=== PATIENT | female | born 2000 | race Caucasian/White ===

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

== ENCOUNTER 2018-05-05 15:19 | Emergency (ER) | payer BC, OTHER ==
--- NOTE | 2018-05-05 17:29 | ERPHSYRPT ---
- History of Present Illness Time Seen by Provider: 05/05/18 17:22 Source: patient Exam Limitations: no limitations Patient Subjective Stated Complaint: lump on right breast Triage Nursing Assessment: Pt c/o of lump on right lateral breast, no breakage of the skin, headache, doesn't feel good, denies vomiting, nasuea, afebrile, tachycardic, pulses normal Physician History: pt has tender right breast for several days and has felt like having some fever has tried heat compress, no vomiting, no discharge , not breast feeding; no trauma; Timing/Duration: day(s) Severity: mild Associated Symptoms: fever, headaches Allergies/Adverse Reactions: No Known Drug Allergies Allergy (Verified 05/05/18 15:39) Hx Tetanus, Diphtheria Vaccination/Date Given: Yes Hx Influenza Vaccination/Date Given: No Hx Pneumococcal Vaccination/Date Given: No - Review of Systems Constitutional: Fever, No Chills Eyes: No Symptoms Ears, Nose, & Throat: No Symptoms Respiratory: No Cough, No Dyspnea Cardiac: No Chest Pain, No Edema, No Syncope Abdominal/Gastrointestinal: No Abdominal Pain, No Nausea, No Vomiting, No Diarrhea Genitourinary Symptoms: No Dysuria Musculoskeletal: No Back Pain, No Neck Pain Skin: No Rash Neurological: No Dizziness, No Focal Weakness, No Sensory Changes Psychological: No Symptoms Endocrine: No Symptoms All Other Systems: Reviewed and Negative - Past Medical History Pertinent Past Medical History: Yes Neurological History: No Pertinent History ENT History: No Pertinent History Cardiac History: No Pertinent History Respiratory History: No Pertinent History Endocrine Medical History: No Pertinent History Musculoskeletal History: No Pertinent History GI Medical History: No Pertinent History Psycho-Social History: Anxiety, Depression Female Reproductive Disorders: No Pertinent History Other Medical History: kidney infection - Past Surgical History Past Surgical History: No Neuro Surgical History: No Pertinent History Cardiac: No Pertinent History Respiratory: No Pertinent History Gastrointestinal: No Pertinent History Genitourinary: No Pertinent History Musculoskeletal: No Pertinent History Female Surgical History: No Pertinent History - Social History Smoking Status: Current every day smoker How long have you smoked: 2 Exposure to second hand smoke: Yes Drug Use: marijuana Patient Lives Alone: No - Female History Hx Last Menstrual Period: 05/03/2018 Hx Now: No - Nursing Vital Signs Nursing Vital Signs: Initial Vital Signs Temperature 98.9 F 05/05/18 15:30 Pulse Rate 115 H 05/05/18 15:30 Blood Pressure 134/87 05/05/18 15:30 O2 Sat by Pulse Oximetry 98 05/05/18 15:30 Pain Scale Pain Intensity 6 - Physical Exam General Appearance: no apparent distress, alert Eye Exam: PERRL/EOMI, eyes nml inspection Ears, Nose, Throat Exam: normal ENT inspection, TMs normal, pharynx normal, moist mucous membranes Neck Exam: normal inspection, non-tender, supple, full range of motion Respiratory Exam: normal breath sounds, lungs clear, No respiratory distress Cardiovascular Exam: regular rate/rhythm, normal heart sounds, normal peripheral pulses Gastrointestinal/Abdomen Exam: soft, normal bowel sounds, No tenderness, No mass Pelvic Exam: deferred Rectal Exam: not done Back Exam: normal inspection, normal range of motion, No CVA tenderness, No vertebral tenderness Extremity Exam: normal inspection, normal range of motion, pelvis stable Neurologic Exam: alert, oriented x 3, cooperative, normal mood/affect, nml cerebellar function, nml station & gait, sensation nml, No motor deficits Skin Exam: normal color, warm, dry, other (tender right breast induration - no fluctuance), No rash Lymphatic Exam: No adenopathy SpO2 Interpretation: normal SpO2: 98 Oxygen Delivery: Room Air - Course Nursing assessment & vital signs reviewed: Yes - Progress Progress: unchanged Progress Note: 05/05/18 17:31 discussed with pt no definite abcess at this time and we could try to drain or try antibiotics first and followup with her Dr, for further testing and treatmetn. that is what she chooses - no attempts at drainage at this time since no definite abcess; - Departure Time of Disposition: 17:36 Departure Disposition: Home Clinical Impression: Mastitis Condition: Good Critical Care Time: No Referrals: DOCTOR,NO FAMILY [Primary Care Provider] - Instructions: Mastitis (DC) Additional Instructions: it is important to followup with your Dr. for furhter evaluation this next week - possibly mammography or ultrasound , and may require drainage later if not resolving; return meantime or to Dr if not improving, vomiting, drainage or other concerns Prescriptions: Cephalexin Mh 500 mg [Keflex 500 mg] 500 mg PO TID #20 capsule Clindamycin HCl 300 mg PO QID #30 capsule
[2018-05-05] MEDS ORDERED: KEFLEX 500 MG PO ONE (17:44)
[2018-05-05] MEDS ORDERED: CLEOCIN 150 MG CAPSULE PO ONE (17:44)
[2018-05-05] MEDS ORDERED: CLEOCIN 150 MG CAPSULE ONE (17:57)
[2018-05-05] MEDS ORDERED: KEFLEX 500 MG ONE (17:57)
[2018-05-05 18:19] VITALS: BP 134/103; PULSE 94; O2SAT 95
== END 2018-05-05 18:19 | disposition home or self-care (01) ==
LOC: ED 15:19
DX: N61.0 Mastitis without abscess (principal); R51 Headache
CPT/HCPCS: 99284; A9270-GY

== ENCOUNTER 2022-08-08 14:08 | Emergency (ER) | payer OTHER ==
[2022-08-08] MEDS ORDERED: Sodium Chloride 0.9% 1000 ML 1,000 ML IV STA (14:20)
[2022-08-08] MEDS ORDERED: ANTIVERT 25 MG PO ONE (14:20)
[2022-08-08] MEDS ORDERED: Valium 5 MG PO ONE (14:20)
[2022-08-08] MEDS ORDERED: Zofran 4 MG/2 ML VIAL IV ONE (14:20)
--- NOTE | 2022-08-08 14:21 | ERPHSYRPT ---
- History of Present Illness Time Seen by Provider: 08/08/22 14:19 Source: patient Exam Limitations: no limitations Physician History: Patient is a 22-year-old female who presents with a complaint of dizziness and vertigo and vomiting for 2 days. She started with nasal congestion and a cough and the dizziness and the vertigo came later she feels a strange pressure type sensation in the occipital area. She denies any fever chills or sweats. She has essentially negative past medical history. Denies any possibility of . Timing/Duration: day(s) (3) Severity: moderate Modifying Factors: Improves With: movement Associated Symptoms: nausea, vomiting Allergies/Adverse Reactions: No Known Drug Allergies Allergy (Verified 08/08/22 14:23) Hx Tetanus, Diphtheria Vaccination/Date Given: Yes Hx Influenza Vaccination/Date Given: No Hx Pneumococcal Vaccination/Date Given: No - Review of Systems Constitutional: No Fever, No Chills Eyes: No Symptoms Ears, Nose, & Throat: No Symptoms Respiratory: No Cough, No Dyspnea Cardiac: No Chest Pain, No Edema, No Syncope Abdominal/Gastrointestinal: Nausea, Vomiting, No Abdominal Pain, No Diarrhea Genitourinary Symptoms: No Dysuria Musculoskeletal: No Back Pain, No Neck Pain Skin: No Rash Neurological: Dizziness (Vertigo), No Focal Weakness, No Sensory Changes Psychological: No Symptoms Endocrine: No Symptoms All Other Systems: Reviewed and Negative - Past Medical History Pertinent Past Medical History: Yes Neurological History: No Pertinent History ENT History: No Pertinent History Cardiac History: No Pertinent History Respiratory History: No Pertinent History Endocrine Medical History: No Pertinent History Musculoskeletal History: No Pertinent History GI Medical History: No Pertinent History Psycho-Social History: Anxiety, Depression Female Reproductive Disorders: No Pertinent History Other Medical History: kidney infection - Past Surgical History Past Surgical History: No Neuro Surgical History: No Pertinent History Cardiac: No Pertinent History Respiratory: No Pertinent History Gastrointestinal: No Pertinent History Genitourinary: No Pertinent History Musculoskeletal: No Pertinent History Female Surgical History: No Pertinent History - Social History Smoking Status: Current every day smoker How long have you smoked: 2 Exposure to second hand smoke: Yes Drug Use: marijuana Patient Lives Alone: No - Nursing Vital Signs Nursing Vital Signs: Initial Vital Signs Temperature 98.6 F 08/08/22 14:12 Pulse Rate 114 H 08/08/22 14:12 Respiratory Rate 18 08/08/22 14:12 Blood Pressure 134/88 08/08/22 14:12 O2 Sat by Pulse Oximetry 98 08/08/22 14:12 Pain Scale Pain Intensity 0 - Physical Exam General Appearance: mild distress Eye Exam: PERRL/EOMI, eyes nml inspection Ears, Nose, Throat Exam: normal ENT inspection, TMs normal, pharynx normal, moist mucous membranes Neck Exam: normal inspection, non-tender, supple, full range of motion Respiratory Exam: normal breath sounds, lungs clear, No respiratory distress Cardiovascular Exam: regular rate/rhythm, normal heart sounds, normal peripheral pulses Gastrointestinal/Abdomen Exam: soft, normal bowel sounds Back Exam: normal inspection, normal range of motion, No CVA tenderness, No vertebral tenderness Extremity Exam: normal inspection, normal range of motion, pelvis stable Neurologic Exam: alert, oriented x 3, nml cerebellar function, other (Nystagmus with change in head position) Skin Exam: normal color, warm, dry, No rash Lymphatic Exam: No adenopathy SpO2 Interpretation: normal SpO2: 98 O2 Delivery: Room Air - Course Nursing assessment & vital signs reviewed: Yes - Radiology Exams Chest X-ray Interpretation: Interpreted by me, Negative - CT Exams Head CT Interpretation: Tele-radiologist Report Ordered Tests: Active Orders 24 hr Category Date Time Status IV Insertion STAT Care 08/08/22 14:20 Active CHEST 1 VIEW (PORTABLE) Stat Exams 08/08/22 14:21 Taken HEAD WITHOUT CONTRAST [CT] Stat Exams 08/08/22 14:21 Taken CBC W DIFF Stat Lab 08/08/22 14:27 Completed CMP Stat Lab 08/08/22 14:27 Completed CULTURE,URINE Stat Lab 08/08/22 14:24 Received HCG,QUALITATIVE URINE Stat Lab 08/08/22 14:24 Completed Lactic Acid Stat Lab 08/08/22 14:20 Ordered MAGNESIUM Stat Lab 08/08/22 14:27 Completed UA W/RFX UR CULTURE Stat Lab 08/08/22 14:24 Completed Urine Triage Profile Stat Lab 08/08/22 14:24 Completed Medication Summary Discontinued Medications Generic Name Dose Route Start Last Admin Trade Name Freq PRN Reason Stop Dose Admin Diazepam 2.5 mg 08/08/22 14:20 08/08/22 14:29 Diazepam 5 Mg Tablet PO 08/08/22 14:21 2.5 mg STAT ONE Administration Diazepam Confirm 08/08/22 14:26 Diazepam 5 Mg Tablet Administered 08/08/22 14:27 Dose 5 mg .ROUTE .STK-MED ONE Sodium Chloride 1,000 mls @ 999 mls/hr 08/08/22 14:20 08/08/22 15:30 Sodium Chloride 0.9% 1000 Ml IV 08/08/22 15:20 Infused .Q1H1M STA Infusion Sodium Chloride Confirm 08/08/22 14:26 Sodium Chloride 0.9% 1000 Ml Administered 08/08/22 14:27 Dose 1,000 mls @ ud .ROUTE .STK-MED ONE Meclizine HCl 25 mg 08/08/22 14:20 08/08/22 14:29 Meclizine Hcl 25 Mg Tablet PO 08/08/22 14:21 25 mg STAT ONE Administration Meclizine HCl Confirm 08/08/22 14:26 Meclizine Hcl 25 Mg Tablet Administered 08/08/22 14:27 Dose 25 mg .ROUTE .STK-MED ONE Ondansetron HCl 4 mg 08/08/22 14:20 08/08/22 14:29 Ondansetron Hcl 4 Mg/2 Ml Vial IV 08/08/22 14:21 4 mg STAT ONE Administration Ondansetron HCl Confirm 08/08/22 14:25 Ondansetron Hcl 4 Mg/2 Ml Vial Administered 08/08/22 14:26 Dose 4 mg .ROUTE .STK-MED ONE Lab/Rad Data: Laboratory Result Diagrams 08/08/22 14:27 08/08/22 14:27 Laboratory Results 08/08/22 08/08/22 08/08/22 Range/Units 14:27 14:27 14:24 WBC 16.3 H (4.0-10.5) x10^3/uL RBC 4.95 (4.1-5.4) x10^6/uL Hgb 14.5 (12.0-16.0) g/dL Hct 43.5 (35-47) % MCV 87.9 (78-100) fL MCH 29.3 (26-32) pg MCHC 33.3 (32-36) g/dL RDW 12.6 (11.5-14.0) % Plt Count 351 (150-450) x10^3/uL MPV 9.4 (7.5-11.0) fL Gran % 74.4 H (36.0-66.0) % Immature Gran % (Auto) 0.4 (0.00-0.4) % Nucleat RBC Rel Count 0.0 (0.00-0.1) % Eos # (Auto) 0.19 (0-0.5) x10^3/uL Immature Gran # (Auto) 0.07 H (0.00-0.03) x10^3u/L Absolute Lymphs (auto) 2.65 (1.0-4.6) x10^3/uL Absolute Monos (auto) 1.19 (0.0-1.3) x10^3/uL Absolute Nucleated RBC 0.00 (0.00-0.01) x10^3u/L Lymphocytes % 16.3 L (24.0-44.0) % Monocytes % 7.3 (0.0-12.0) % Eosinophils % 1.2 (0.00-5.0) % Basophils % 0.4 (0.0-0.4) % Absolute Granulocytes 12.09 H (1.4-6.9) x10^3/uL Basophils # 0.07 (0-0.4) x10^3/uL Sodium 140 (137-145) mmol/L Potassium 3.7 (3.5-5.1) mmol/L Chloride 102 (98-107) mmol/L Carbon Dioxide 23 (22-30) mmol/L Anion Gap 18.7 H (5-15) MEQ/L BUN 7 (7-17) mg/dL Creatinine 0.65 (0.52-1.04) mg/dL Estimated GFR > 60.0 ML/MIN Glucose 87 (74-106) mg/dL Calcium 8.9 (8.4-10.2) mg/dL Magnesium 1.7 (1.6-2.3) mg/dL Total Bilirubin 0.40 (0.2-1.3) mg/dL AST 26 (14-36) U/L ALT 21 (0-35) U/L Alkaline Phosphatase 156 H (38-126) U/L Serum Total Protein 8.6 H (6.3-8.2) g/dL Albumin 4.8 (3.5-5.0) g/dL Urine Color (Yellow) Urine Appearance (Clear) Urine pH (4.6-8.0) Ur Specific [place] (1.005-1.030) Urine Protein (Negative) Urine Glucose (UA) (Negative) mg/dL Urine Ketones (Negative) Urine Blood (Negative) Urine Nitrite (Negative) Urine Bilirubin (Negative) Urine Urobilinogen (0.2) mg/dL Ur Leukocyte Esterase (Negative) U Hyaline Cast (Auto) (0-2) /LPF Urine Microscopic RBC (0-5) /HPF Urine Microscopic WBC (0-5) /HPF Ur Epithelial Cells (None Seen) /HPF Urine Bacteria (None Seen) /HPF Urine Culture Reflexed (NO) Urine HCG, Qual (Negative) Urine Opiates Level NEGATIVE (NEGATIVE) Ur Methadone NEGATIVE (NEGATIVE) Urine Barbiturates NEGATIVE (NEGATIVE) Ur Phencyclidine (PCP) NEGATIVE (NEGATIVE) Urine Amphetamine NEGATIVE (NEGATIVE) U Benzodiazepine Level NEGATIVE (NEGATIVE) Urine Cocaine NEGATIVE (NEGATIVE) Urine Marijuana (THC) NEGATIVE (NEGATIVE) 08/08/22 08/08/22 Range/Units 14:24 14:24 WBC (4.0-10.5) x10^3/uL RBC (4.1-5.4) x10^6/uL Hgb (12.0-16.0) g/dL Hct (35-47) % MCV (78-100) fL MCH (26-32) pg MCHC (32-36) g/dL RDW (11.5-14.0) % Plt Count (150-450) x10^3/uL MPV (7.5-11.0) fL Gran % (36.0-66.0) % Immature Gran % (Auto) (0.00-0.4) % Nucleat RBC Rel Count (0.00-0.1) % Eos # (Auto) (0-0.5) x10^3/uL Immature Gran # (Auto) (0.00-0.03) x10^3u/L Absolute Lymphs (auto) (1.0-4.6) x10^3/uL Absolute Monos (auto) (0.0-1.3) x10^3/uL Absolute Nucleated RBC (0.00-0.01) x10^3u/L Lymphocytes % (24.0-44.0) % Monocytes % (0.0-12.0) % Eosinophils % (0.00-5.0) % Basophils % (0.0-0.4) % Absolute Granulocytes (1.4-6.9) x10^3/uL Basophils # (0-0.4) x10^3/uL Sodium (137-145) mmol/L Potassium (3.5-5.1) mmol/L Chloride (98-107) mmol/L Carbon Dioxide (22-30) mmol/L Anion Gap (5-15) MEQ/L BUN (7-17) mg/dL Creatinine (0.52-1.04) mg/dL Estimated GFR ML/MIN Glucose (74-106) mg/dL Calcium (8.4-10.2) mg/dL Magnesium (1.6-2.3) mg/dL Total Bilirubin (0.2-1.3) mg/dL AST (14-36) U/L ALT (0-35) U/L Alkaline Phosphatase (38-126) U/L Serum Total Protein (6.3-8.2) g/dL Albumin (3.5-5.0) g/dL Urine Color Yellow (Yellow) Urine Appearance Cloudy A (Clear) Urine pH 7.5 (4.6-8.0) Ur Specific [place] 1.025 (1.005-1.030) Urine Protein 30 (Negative) Urine Glucose (UA) Negative (Negative) mg/dL Urine Ketones 15 A (Negative) Urine Blood Negative (Negative) Urine Nitrite Negative (Negative) Urine Bilirubin Negative (Negative) Urine Urobilinogen 0.2 (0.2) mg/dL Ur Leukocyte Esterase Small A (Negative) U Hyaline Cast (Auto) 3-5 A (0-2) /LPF Urine Microscopic RBC 0-2 (0-5) /HPF Urine Microscopic WBC 21-50 A (0-5) /HPF Ur Epithelial Cells Many A (None Seen) /HPF Urine Bacteria Many A (None Seen) /HPF Urine Culture Reflexed YES (NO) Urine HCG, Qual NEGATIVE (Negative) Urine Opiates Level (NEGATIVE) Ur Methadone (NEGATIVE) Urine Barbiturates (NEGATIVE) Ur Phencyclidine (PCP) (NEGATIVE) Urine Amphetamine (NEGATIVE) U Benzodiazepine Level (NEGATIVE) Urine Cocaine (NEGATIVE) Urine Marijuana (THC) (NEGATIVE) - Progress Progress: improved Medical Desision Making - Independent Historian Additional History obtained from: Spouse - Diagnostic Testing Diagnostic test were ordered, analyzed, and reviewed by me: Yes Radiological Interpretation: Interpreted by me, Teleradiologist Report - Risk of complications Low Risk: Low risk of morbidity from additional dx testing or treatment - Departure Departure Disposition: Home Clinical Impression: Acute labyrinthitis, Urinary tract infection, Sinusitis Condition: Stable Critical Care Time: No Referrals: DOCTOR,NO FAMILY [Primary Care Provider] - Follow up/PCP as directed Instructions: Vertigo (a Type of Dizziness) (DC) Prescriptions: Ondansetron ODT 4 MG [Zofran Odt 4 mg] 4 mg PO Q6H PRN PRN #10 tablet PRN Reason: Vomiting Meclizine HCl 25 mg [Antivert 25 mg] 25 mg PO Q6H 5 Days #20 tablet Cephalexin Mh 500 mg [Keflex 500 mg] 500 mg PO TID #21 cap
[2022-08-08] MEDS ORDERED: Zofran 4 MG/2 ML VIAL ONE (14:25)
[2022-08-08] MEDS ORDERED: Sodium Chloride 0.9% 1000 ML 1,000 ML ONE (14:26)
[2022-08-08] MEDS ORDERED: Valium 5 MG ONE (14:26)
[2022-08-08] MEDS ORDERED: ANTIVERT 25 MG ONE (14:26)
[2022-08-08 14:32] LABS: Absolute Neutrophil Ct (ANC) 12.09 x10^3/uL (1.4-6.9); BASOPHIL % 0.4 % (0.0-0.4); Basophil (Absolute #) 0.07 x10^3/uL (0-0.4); Eosinophil % 1.2 % (0.00-5.0); Eosinophil (Absolute #) 0.19 x10^3/uL (0-0.5); Hematocrit 43.5 % (35-47); Hemoglobin 14.5 g/dL (12.0-16.0); IMMATURE GRAN # 0.07 x10^3u/L (0.00-0.03); IMMATURE GRAN % 0.4 % (0.00-0.4); Lymphocyte (Absolute #) 2.65 x10^3/uL (1.0-4.6); Lymphocytes % 16.3 % (24.0-44.0); Mean Cell Volume 87.9 fL (78-100); Mean Corpuscular Hemoglobin 29.3 pg (26-32); Mean Corpuscular Hgb Concent. 33.3 g/dL (32-36); Mean Platelet Volume 9.4 fL (7.5-11.0); Monocyte (Absolute #) 1.19 x10^3/uL (0.0-1.3); Monocytes % 7.3 % (0.0-12.0); Neutrophil % 74.4 % (36.0-66.0); Platelet Count 351 x10^3/uL (150-450); Red Blood Count 4.95 x10^6/uL (4.1-5.4); Red Cell Distribution Width 12.6 % (11.5-14.0); White Blood Count 16.3 x10^3/uL (4.0-10.5)
[2022-08-08 14:43] LABS: Appearance Cloudy (Clear); Bilirubin Negative (Negative); Blood Negative (Negative); Glucose, Urine Negative (Negative); Ketones 15 (Negative); Leukocyte Esterase Small (Negative); Nitrite Negative (Negative); Ph 7.5 (4.6-8.0); Protein,Urine Dip 30 (Negative); Specific Gravity 1.025 (1.005-1.030); Urobilinogen 0.2 mg/dL (0.2)
[2022-08-08 14:51] LABS: ALBUMIN 4.8 g/dL (3.5-5.0); ALKALINE PHOSPHATASE 156 U/L (38-126); ANION GAP 18.7 MEQ/L (5-15); BLOOD UREA NITROGEN 7 mg/dL (7-17); CHLORIDE 102 mmol/L (98-107); Calcium 8.9 mg/dL (8.4-10.2); Carbon Dioxide 23 mmol/L (22-30); Creatinine 1 0.65 mg/dL (0.52-1.04); EST GLOMERULAR FILTRATION RATE > 60.0 ML/MIN; Glucose 87 mg/dL (74-106); MAGNESIUM 1.7 mg/dL (1.6-2.3); Potassium 3.7 mmol/L (3.5-5.1); SGOT/AST 26 U/L (14-36); SGPT/ALT 21 U/L (0-35); SODIUM 140 mmol/L (137-145); Total Protein 8.6 g/dL (6.3-8.2)
[2022-08-08 14:53] LABS: Bacteria Many /HPF (None Seen); Epithelial Cells Many /HPF (None Seen); RBC 0-2 /HPF (0-5); WBC 21-50 /HPF (0-5)
[2022-08-08 14:59] LABS: Amphetamine,Urine NEGATIVE (NEGATIVE); Barbiturate,Urine NEGATIVE (NEGATIVE); Benzodiazepine,Urine NEGATIVE (NEGATIVE); Cocaine,Urine NEGATIVE (NEGATIVE); Methadone,Urine NEGATIVE (NEGATIVE); Opiate,Urine NEGATIVE (NEGATIVE); PCP,Urine NEGATIVE (NEGATIVE); THC,Urine NEGATIVE (NEGATIVE)
[2022-08-08 15:10] LABS: ADD URINE CULTURE? YES (NO)
[2022-08-08 15:47] VITALS: PULSE 68
[2022-08-08 16:04] VITALS: BP 108/74; O2SAT 97
[2022-08-08] MEDS ORDERED: DELTASONE 20 MG PO ONE (16:04)
[2022-08-08] MEDS ORDERED: DELTASONE 20 MG ONE (16:05)
--- NOTE | 2022-08-08 19:44 | XRAY ---
Indication: Vertigo. Comparison: None Portable chest demonstrates normal heart, lungs, and bony thorax.
--- NOTE | 2022-08-08 19:44 | XRAY ---
Indication: Vertigo. Multiple contiguous axial images obtained through the head without contrast. Comparison: None Normal appearing brain parenchyma, ventricles, and bony calvarium. Visualized paranasal sinuses and mastoid air cells are clear. Impression: Normal CT head without contrast exam. Comment: Preliminary interpretation made by [facility]. No critical discrepancy.
== END 2022-08-08 16:11 | disposition home or self-care (01) ==
LOC: ED 14:08
DX: H83.09 Labyrinthitis, unspecified ear (principal); N39.0 Urinary tract infection, site not specified; J32.9 Chronic sinusitis, unspecified; R11.10 Vomiting, unspecified; R05.9 Cough, unspecified; R09.81 Nasal congestion; Z72.0 Tobacco use; Z79.899 Other long term (current) drug therapy
CPT/HCPCS: 36000; 36415; 70450; 71045; 80053; 80307; 81001; 81025; 83735; 85025; 87086; 96360; 96374; 99284; J2405; A9270-GY